=== PATIENT | male | born 1970 | race Caucasian/White ===

== ENCOUNTER → 2021-03-08 | Outpatient (CLI) | payer BC ==
--- NOTE | 2021-03-08 13:06 | CONS ---
CONSULTATION DATE OF SERVICE: 03/08/2021 This 51-year-old gentleman has been evaluated [facility] for possible obstructive sleep apnea-hypopnea syndrome. HISTORY OF PRESENT ILLNESS/SLEEP-WAKE EVALUATION: Patient's usual sleep schedule on weekdays is from 10 p.m. to 6 a.m. and on weekends from 10 or 11 p.m. until between 7 and 9 a.m. No problems with falling asleep. No TV in bedroom. The patient usually sleeps on the back and side position. According to his , he has loud snoring and he wakes up from sleep about 10 times with up to 4 episodes of nocturia. In the morning, the patient wakes up tired, feels sleepiness during the day. Dawson Sleepiness Scale is in very high range at 19. He always feels tiredness, but usually does not take any naps. No history of hypnagogic hallucinations, sleep paralysis or cataplexy. PAST MEDICAL HISTORY: Positive for acid reflux. PAST SURGICAL HISTORY: Positive for surgery for right rotator cuff problems. MEDICATIONS: Pepcid once a day. SOCIAL HISTORY: Positive for smoking one pack a day for 30 years. Patient continues to smoke. Alcohol consumption occasional. FAMILY HISTORY: Diabetes, cancer. REVIEW OF SYSTEMS: No fevers. No double vision. No recent chest pain. No shortness of breath. No abdominal pain. No bleeding episodes. No blood in the urine. No seizure episodes. Multiple awakenings from sleep, loud snoring, sleepiness. PHYSICAL EXAMINATION: GENERAL: A pleasant gentleman without distress. VITAL SIGNS: BP 125/75, HR 81, RR 16, height 5 feet 7-3/4 inches, weight 240.6 pounds, body mass index 36.8, temperature 97.2, oxygen saturation at room air 97%. HEENT: PERRLA, EOMI, evaluation of oropharynx showed tongue protrudes midline. Extremely low position of soft palate; Mallampati IV. NECK: Supple, no JVD. Thyroid is not palpable. Neck is wide; 17-3/4 inches in circumference. LUNGS: Clear to percussion and to auscultation. Good air exchange. No wheezing or rhonchi. HEART: S1, S2 regular. No murmurs, gallops, or rubs. ABDOMEN: Obese. EXTREMITIES: No clubbing or cyanosis. BODY WIRER: Awake, alert, and oriented X3. Cranial nerves 2 to 7 intact. There is no fasciculation or atrophy. noted. No focal deficits observed. IMPRESSION: 1. Loud snoring, multiple awakenings from sleep up to 10 times with multiple episodes of nocturia, extremely low position of soft palate, Mallampati IV, wide neck, 17- 3/4 inches in circumference, high Dawson Sleepiness Scale, sleepiness; obstructive sleep apnea-hypopnea syndrome. 2. Extremely high Dawson Sleepiness Scale of 19, dictating necessity to include hypersomnia, including narcolepsy in differential diagnosis, although no history of cataplexy and hypnagogic hallucinations. 3. Obesity, body mass index 36.8. 4. Acid reflux. 5. Status post right rotator cuff surgery. PLAN: 1. Home sleep apnea test for evaluation of patient's breathing during sleep. 2. CPAP/BiPAP titration if sleep study confirms obstructive sleep apnea-hypopnea syndrome. 3. Preferable position during sleep on the side. 4. No driving if patient feels any sleepiness. 5. I will see patient for follow up visit to explain results of testing and following plan. Thank you very much for referring this patient for consultation. Sincerely, Enzo Morrow MD, PhD, FAASM Diplomat of [employer] Sleep Medicine [employer] of [place] [facility] [place] [id number] / LIV: [id number] /
== END ==
LOC: SLEEP 10:48
PROVIDERS: ATTEND Internal Medicine
DX: G47.33 Obstructive sleep apnea (adult) (pediatric) (principal); R35.1 Nocturia; E66.9 Obesity, unspecified; K21.9 Gastro-esophageal reflux disease without esophagitis; F17.200 Nicotine dependence, unspecified, uncomplicated; Z68.36 Body mass index [BMI] 36.0-36.9, adult; Z98.890 Other specified postprocedural states
CPT/HCPCS: 99202

== ENCOUNTER 2023-03-06 13:47 | Emergency (ER) | payer BC ==
[2023-03-06] MEDS ORDERED: KETOROLAC 15 MG/ML 1 ML VIAL IM STA (14:45)
--- NOTE | 2023-03-06 14:46 | ED ---
ENT HPI - General Chief complaint: ENT Stated complaint: right side pain Time Seen by Provider: 03/06/23 14:17 Source: patient, RN notes reviewed, old records reviewed Mode of arrival: ambulatory Limitations: no limitations - History of Present Illness Initial comments: This is a 53-year-old male to the emergency department for evaluation. Patient Dese for evaluation regards to right ear pain nasal pain neck pain right shoulder pain right arm pain. No injury no trauma no other complaints. Patient has not been feeling well day and is concerned of the cause of this pain. MD complaint: sore throat, ear pain -: days(s) Location: R ear Severity: moderate Severity scale (1-10): 4 Quality: burning Consistency: constant Improves with: none Worsens with: none Associated Symptoms: other (ear pain) - Related Data Allergies Allergy/AdvReac Type Severity Reaction Status Date / Time No Known Allergies Allergy Verified 03/06/23 14:01 Review of Systems ROS Statement: Those systems with pertinent positive or pertinent negative responses have been documented in the HPI. ROS Other: All systems not noted in ROS Statement are negative. Past Medical History Past Medical History: GERD/Reflux, Hyperlipidemia History of Any Multi-Drug Resistant Organisms: None Reported Past Surgical History: Orthopedic Surgery Additional Past Surgical History / Comment(s): right shoulder rotator cuff Past Psychological History: No Psychological Hx Reported Smoking Status: Current every day smoker Past Alcohol Use History: None Reported Past Drug Use History: None Reported General Exam Limitations: no limitations General appearance: alert, in no apparent distress Head exam: Present: atraumatic, normocephalic, normal inspection Eye exam: Present: normal appearance, PERRL, EOMI. Absent: scleral icterus, conjunctival injection, periorbital swelling ENT exam: Present: normal exam, mucous membranes moist Neck exam: Present: normal inspection. Absent: tenderness, meningismus, lymphadenopathy Respiratory exam: Present: normal lung sounds bilaterally. Absent: respiratory distress, wheezes, rales, rhonchi, stridor Cardiovascular Exam: Present: regular rate, normal rhythm, normal heart sounds. Absent: systolic murmur, diastolic murmur, rubs, gallop, clicks GI/Abdominal exam: Present: soft, normal bowel sounds. Absent: distended, tenderness, guarding, rebound, rigid Extremities exam: Present: normal inspection, full ROM, normal capillary refill. Absent: tenderness, pedal edema, joint swelling, calf tenderness Back exam: Present: normal inspection Neurological exam: Present: alert, oriented X3, CN II-XII intact Psychiatric exam: Present: normal affect, normal mood Skin exam: Present: warm, dry, intact, normal color. Absent: rash Course Vital Signs 03/06/23 03/06/23 13:57 16:28 Temperature 98 F 98.1 F Pulse Rate 93 85 Respiratory 16 18 Rate Blood Pressure 136/81 126/78 O2 Sat by Pulse 96 95 Oximetry - Reevaluation(s) Reevaluation #1: 03/06/23 15:06 medical records reviewed Reevaluation #2: 03/06/23 16:18 Patient for results and questions answered Reevaluation #3: 03/06/23 16:19 Patient symptoms unchanged Reevaluation #4: 03/06/23 14:56 Was pt. sent in by a medical professional or institution (, [facility], [employer], urgent care, hospital, or jail...) When possible be specific @ -no Did you speak to anyone other than the patient for history (EMS, parent, family, police, friend...)? What history was obtained from this source @ -no Did you review nursing and triage notes (agree or disagree)? Why? @ -agree Are old charts reviewed (outside hosp., previous admission, EMS record, old EKG, old radiological studies, urgent care reports/EKG's, jail records)? Report findings @ -yes Differential Diagnosis (chest pain, altered mental status, abdominal pain women, abdominal pain men, vaginal bleeding, weakness, fever, dyspnea, syncope, headache, dizziness, GI bleed, back pain, seizure, CVA, palpatations, mental health, musculoskeletal)? @ -prior EKG interpreted by me (3pts min.). @ -no X-rays interpreted by me (1pt min.). @ -yes CT interpreted by me (1pt min.). @ -yes U/S interpreted by me (1pt. min.). @ -no What testing was considered but not performed or refused? (CT, X-rays, U/S, labs)? Why? @ -none What meds were considered but not given or refused? Why? @ -none Did you discuss the management of the patient with other professionals (professionals i.e. Dr., PA, [employer], lab, RT, psych nurse, social services assistant, croze machine operator, teacher, deportation officer, case reviewer)? Give summary @ -no Was smoking cessation discussed for >3mins.? @ -no Was critical care preformed (if so, how long)? @ -no Were there social determinants of health that impacted care today? How? (Homelessness, low income, unemployed, alcoholism, drug addiction, transportation, low edu. Level, literacy, decrease access to med. care, half-way, rehab)? @ -none Was there de-escalation of care discussed even if they declined (Discuss DNR or withdrawal of care, Hospice)? DNR status @ -no What co-morbidities impacted this encounter? (DM, HTN, Smoking, COPD, CAD, Cancer, CVA, ARF, Chemo, Hep., AIDS, mental health diagnosis, sleep apnea, morbid obesity)? @ -none Was patient admitted / discharged? Hospital course, mention meds given and route, prescriptions, significant lab abnormalities, going to OR and other pertinent info. @ - 53 male to the emergency department for evaluation of severe right-sided pain arm pain right-sided back pain neck pain. Patient is no findings here in the ER, patient does have right ear pain as well but evaluation of right ear is negative. Patient can be discharged home Discharge Undiagnosed new problem with uncertain prognosis? @ -no Drug Therapy requiring intensive monitoring for toxicity (Heparin, Nitro, Insulin, Cardizem)? @ -no Were any procedures done? @ -no Diagnosis/symptom? @ -Right ear pain right shoulder pain and headache Acute, or Chronic, or Acute on Chronic? @ -Acute Uncomplicated (without systemic symptoms) or Complicated (systemic symptoms)? @ -Complicated Side effects of treatment? @ -no Exacerbation, Progression, or Severe Exacerbation? @ -exacerbation Poses a threat to life or bodily function? How? (Chest pain, [place], [place], pneumonia, PE, COPD, DKA, ARF, appy, cholecystitis, CVA, Diverticulitis, Homicidal, Suicidal, threat to staff... and all critical care pts) @ -no Medical Decision Making - Medical Decision Making 53 male to the emergency department for evaluation of severe right-sided pain arm pain right-sided back pain neck pain. Patient is no findings here in the ER, patient does have right ear pain as well but evaluation of right ear is negative. Patient can be discharged home - Lab Data Lab Results 03/06/23 Range/Units 14:50 Influenza Type A (PCR) Not Detected (Not Detectd) Influenza Type B (PCR) Not Detected (Not Detectd) RSV (PCR) Not Detected (Not Detectd) SARS-CoV-2 (PCR) Not Detected (Not Detectd) - EKG Data -: EKG Interpreted by Me (EKG sinus bradycardia 58 ME 139 QRS 101 QTC 422) - Radiology Data Radiology results: report reviewed (CT brain C-spine chest x-ray negative for acute disease), image reviewed Disposition Clinical Impression: Right arm pain, Right ear pain Disposition: HOME SELF-CARE Condition: Good Instructions (If sedation given, give patient instructions): Earache (ED), Arm Pain (ED) Is patient prescribed a controlled substance at d/c from ED?: No Referrals: Jayme Schroeder MD [Primary Care Provider] - 1-2 days Time of Disposition: 16:15
--- NOTE | 2023-03-06 15:40 | CT ---
EXAMINATION TYPE: CT brain oleg damico con DATE OF EXAM: 03/06/2023 COMPARISON: None HISTORY: stabbing pain down right neck and right side x2 days CT DLP: [address] of the brain was performed. The ventricles, basal cisterns and sulci overlying the cerebral convexities demonstrate mild enlargem ent. There is no evidence for intracranial hemorrhage or sulcal effacement. There is decreased attenuatio n about the periventricular white matter and deep white matter of both cerebral hemispheres, compatib le with chronic small vessel ischemia. No mass effects are seen. If symptoms persist consider MRI. Osseous calvarium is intact. IMPRESSION: 1. Age related atrophic and chronic small vessel ischemic change without acute intracranial process seen at this time. CT Cervical Spine: Unenhanced CT of the cervical spine was performed with bone and soft tissue window settings submitted . Coronal and sagittal reconstruction is obtained. There is normal alignment and prevertebral soft tissues. No evidence for acute cervical fracture . Scattered degenerative disc disease and spondylosis. Biapical scarring. IMPRESSION: 1. No evidence for acute fracture or subluxation of the cervical spine.
--- NOTE | 2023-03-06 15:40 | XR ---
EXAMINATION TYPE: XR chest 1V DATE OF EXAM: 03/06/2023 HISTORY: Shortness of breath. COMPARISON: None. TECHNIQUE: Single view of the chest is submitted. FINDINGS: Demonstrated are scattered senescent parenchymal change. There is no evidence for focal infiltrate. The heart is stable. Hilar and mediastinal structures are within normal limits. Degenerative changes are seen of the dorsal spine. IMPRESSION: 1. Chronic changes without evidence for acute pulmonary disease.
[2023-03-06 16:41] VITALS: BP 126/78; PULSE 85; RESP 18; TEMP 98.1
== END 2023-03-06 16:36 | disposition home or self-care (01) ==
LOC: EC 13:47
DX: M79.601 Pain in right arm (principal); H92.01 Otalgia, right ear; F17.200 Nicotine dependence, unspecified, uncomplicated; Z20.822 Contact with and (suspected) exposure to COVID-19
CPT/HCPCS: 87636; 71045; 72125; 70450; 99284; 96372; J1885